=== PATIENT | male | born 1975 ===

== ENCOUNTER 2017-02-15 09:09 | Emergency (ER) | payer BC ==
--- NOTE | 2017-02-15 10:49 | UC ---
Skin Complaint HPI - HPI Summary HPI Summary: has a Has an abscess on right lower abdomen-for less than 1 week, also has a large area of erythema with purulent raise tender 7cm diameter abscess on back on right thigh abscess area has eroded, and necrotic tissue has an enlarged lymph node for 2 years under left axilla that is non tender and has now developed a swollen non tender area on left shoulder - History of Current Complaint Chief Complaint: UCSkin Time Seen by Provider: 02/15/17 10:44 Stated Complaint: SKIN COMPLAINT Hx Obtained From: Patient Onset/Duration: Gradual Onset, Lasting Days, Still Present Timing: Constant Onset Severity: Moderate Current Severity: Severe Pain Intensity: 9 Pain Scale Used: 0-10 Numeric Location: Discrete - as described Character: Pain, Redness Aggravating Factor(s): Nothing Alleviating Factor(s): Nothing - Allergy/Home Medications Allergies/Adverse Reactions: Allergies Allergy/AdvReac Type Severity Reaction Status Date / Time No Known Allergies Allergy Verified 02/15/17 10:42 Home Medications: Home Medications Ibuprofen TAB* [Motrin TAB* 400 MG] 400 mg PO Q3H PRN 02/15/17 [History Confirmed 02/15/17] Review of Systems Constitutional: Negative Skin: Negative, Other - open area as described Eyes: Negative ENT: Negative Respiratory: Negative Cardiovascular: Negative Gastrointestinal: Negative Genitourinary: Negative Motor: Negative Neurovascular: Negative Musculoskeletal: Negative Neurological: Negative Psychological: Negative Is Patient Immunocompromised?: No All Other Systems Reviewed And Are Negative: Yes PMH/Surg Hx/FS Hx/Imm Hx Previously Healthy: Yes - Surgical History Surgical History: None - Family History Known Family History: Positive: None - Social History Occupation: Employed Full-time Lives: With Family Alcohol Use: Rare Substance Use Type: None Smoking Status (MU): Never Smoked Tobacco - Immunization History Most Recent Tetanus Shot: unknown Physical Exam Triage Information Reviewed: Yes Appearance: Well-Appearing, No Pain Distress, Well-Nourished Vital Signs: Initial Vital Signs Temp 100.3 F 02/15/17 10:33 Pulse 89 02/15/17 10:33 Resp 18 02/15/17 10:33 BP 130/85 02/15/17 10:33 Vital Signs Reviewed: Yes Eye Exam: Normal Eyes: Positive: Conjunctiva Clear ENT Exam: Normal ENT: Positive: Normal ENT inspection, Hearing grossly normal, Pharynx normal. Negative: Nasal congestion, Nasal drainage, Trismus, Muffled voice, Hoarse voice , Dental tenderness Dental Exam: Normal Neck exam: Normal Neck: Positive: Supple, Nontender, No Lymphadenopathy Respiratory Exam: Normal Respiratory: Positive: Chest non-tender, Lungs clear, Normal breath sounds, No respiratory distress, No accessory muscle use Cardiovascular Exam: Normal Cardiovascular: Positive: RRR, No Murmur, Pulses Normal, Brisk Capillary Refill Abdominal Exam: Normal Abdomen Description: Positive: No Organomegaly, Soft, Other: - abscess on right lower abdbomen is tender Musculoskeletal Exam: Normal Musculoskeletal: Positive: Strength Intact, ROM Intact, No Edema Neurological Exam: Normal Neurological: Positive: Alert Psychological Exam: Normal Psychological: Positive: Normal Response To Family Skin Exam: Normal Skin: Positive: Other - abscess, erythema as described, enlarged lym tissue as described Course/Dx - Course Course Of Treatment: up date tina, tranfer to [facility] for further care and treatment - Diagnoses Provider Diagnoses: up date tetanus, lymphadenopathy, abscess with cellulitis right posterior thigh and right lower abdomen - Physician Notification/Consults Time Discussed With Above Provider: 11:40 - Eliz Parra [employer] Discharge - Discharge Plan Condition: Fair Disposition: OTHER Discharge Disposition Comment: to [facility] by private care with driving Patient Education Materials: Wound Infection (ED), Lymphadenopathy (ED), Abscess (ED) Referrals: [facility] [place] [facility] REFERRAL [Outside] - 3 Days Additional Instructions: Please report directly to the Emergency Department for Comprehensive care and treatment
[2017-02-15] MEDS ORDERED: Tetan/Diph/Pertus SYR(Tdap)* 0.5 ML SYR(BOOSTRIX) use SYR IM ONE (11:19)
== END 2017-02-15 11:40 ==
LOC: UCCORT 09:09
DX: L02.211 Cutaneous abscess of abdominal wall (principal); L02.415 Cutaneous abscess of right lower limb; R59.0 Localized enlarged lymph nodes; Z23 Encounter for immunization
CPT/HCPCS: 90471; 90715; 99202; G0463